=== PATIENT | female | born 1980 | race Caucasian/White ===

== ENCOUNTER 2016-11-25 21:32 | Outpatient (CLI) | payer MEDICAID | END 2016-11-25 21:33 | disposition critical access hospital (66) | LOC: EMS 21:32 | PROVIDERS: ATTEND Surgery | DX: R46.89 Other symptoms and signs involving appearance and behavior (principal); R45.1 Restlessness and agitation | CPT/HCPCS: A0425; A0429 ==

== ENCOUNTER 2016-11-25 21:40 | Emergency (ER) | payer MEDICAID ==
--- NOTE | 2016-11-25 22:35 | ED Physician Documentation ---
History of Present Illness - Stated complaint Stated Complaint: ETOH - Chief complaint Chief Complaint: General - History obtained from History obtained from: Patient, EMS, Police - Additonal information Additional information: GUILLERMINA, reportedly her s.o. called 911 because patient was passed out on floor of her house. Medics found patient on floor, unconscious and not responsive to painful stimuli. Patient became increasingly responsive en route to ED and arrives awake, agitated, crying, and uncooperative. She admits to drinking some alcohol tonight. TOM by police in field was .286. 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 HEENT: Tonsil/Adenoidectomy - Present Medications Home Medications: Ambulatory Orders Medication Instructions Recorded Confirmed oxyCODONE [Roxicodone] 5 mg 03/04/16 - Allergies Allergies/Adverse Reactions: Allergies Allergy/AdvReac Type Severity Reaction Status Date / Time Penicillins Allergy Severe Respiratory Verified 05/25/16 13:20 codeine [Codeine] Allergy Intermediate Itching Verified 05/25/16 13:20 gabapentin Allergy Intermediate Hallucinati Verified 05/25/16 13:20 ons morphine Allergy Respiratory Verified 05/25/16 13:20 - Social History Does the pt smoke?: No Smoking Status: Never smoker Does the pt drink ETOH?: No Does the pt have substance abuse?: No - Immunizations Immunizations are current?: Yes - POLST Patient has POLST: No PD ED PE NORMAL - Vitals Vital signs reviewed: Yes - General General: Alert and oriented X 3, Well developed/nourished, Other (labile affect ; crying at times, but also conversant and smiling at times. ) - HEENT HEENT: PERRL, EOMI - Neck Neck: No bony TTP - Cardiac Cardiac: RRR, No murmur - Respiratory Respiratory: No respiratory distress, Clear bilaterally - Extremities Extremities: No deformity, Normal ROM s pain - Neuro Neuro: Alert and oriented X 3 Results - Vitals Vitals: Vital Signs - 24 hr 11/25/16 11/25/16 21:44 22:53 Temperature 36.3 C L Heart Rate 102 H 126 H Respiratory 18 24 Rate Blood Pressure 140/90 H 122/89 H O2 Saturation 98 98 Oxygen O2 Source Room air PD MEDICAL DECISION MAKING - ED course Complexity details: considered differential, d/w patient ED course: Patient appears intoxicated and is uncooperative at times. However, she is awake and alert, and she answers appropriately. She denies [place]. She repeatedly requests discharge home. Police are present in ED. There is no evidence of injury on exam. I advised her to not drink any alcohol if she is taking oxycodone/percocet (or any narcotic/opiate). She says she has been on percocet for several years and does not feel this is a dangerous combination. I was clear in instructing her that combining alcohol with narcotic/opiate medications is extremely dangerous and that she needs to immediately stop drinking if she is to continue on oxycodone. This was written into her discharge instructions as well. Departure - Departure Disposition: 01 Home, Self Care Clinical Impression: Alcohol intoxication Qualifiers: Complication of substance-induced condition: uncomplicated Qualified Code(s): F10.120 - Alcohol abuse with intoxication, uncomplicated Condition: Good Instructions: ED Alcohol Intoxication Comments: As we discussed, DO NOT DRINK ANY ALCOHOL IF YOU ARE TAKING OXYCODONE (or any narcotic/opiate). This is a potentially deadly combination. If you are taking oxycodone with acetaminophen (such as Percocet), you are also likely to permanently damage your liver by combining alcohol and acetaminophen. Discharge Date/Time: 11/25/16 22:56
[2016-11-25 22:56] VITALS: BP 122/89
== END 2016-11-25 22:56 | disposition home or self-care (01) ==
LOC: ED 21:40
DX: F10.129 Alcohol abuse with intoxication, unspecified (principal)
CPT/HCPCS: 99283

== ENCOUNTER 2016-12-24 23:02 | Emergency (ER) | payer MEDICAID ==
[2016-12-24 23:13] VITALS: BP 143/98
--- NOTE | 2016-12-25 00:43 | ED Physician Documentation ---
History of Present Illness - Stated complaint Stated Complaint: SINUS PRESSURE - Chief complaint Chief Complaint: General - History obtained from History obtained from: Patient - History of Present Illness Timing: How many weeks ago (2) Pain level now: 8 Improved by: nothing Worsened by: leaning forward - Additonal information Additional information: c/o bifrontal and bimaxillary sinus pain and congestion x 2 days with thick, green dischagre. subjective fever. cough, cold Review of Systems Constitutional: reports: Chills, Sweats. 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 HEENT: Tonsil/Adenoidectomy - Present Medications Home Medications: Ambulatory Orders Medication Instructions Recorded Confirmed oxyCODONE [Roxicodone] 5 mg PO 1-2XD PRN 03/04/16 12/24/16 Ipratropium/Albuterol [Combivent 1 - 2 puffs PO Q6HR PRN 12/24/16 12/24/16 Respimat] Doxycycline Hyclate 100 mg PO BID #14 tablet 12/25/16 predniSONE [Deltasone] 40 mg PO DAILY 3 Days 12/25/16 - Allergies Allergies/Adverse Reactions: Allergies Allergy/AdvReac Type Severity Reaction Status Date / Time Penicillins Allergy Severe Respiratory Verified 12/24/16 23:23 codeine [Codeine] Allergy Intermediate Itching Verified 12/24/16 23:23 gabapentin Allergy Intermediate Hallucinati Verified 12/24/16 23:23 ons morphine Allergy Respiratory Verified 12/24/16 23:23 - Social History Does the pt smoke?: Yes Smoking Status: Light tobacco smoker Does the pt drink ETOH?: Yes Does the pt have substance abuse?: No - Immunizations Immunizations are current?: Yes - POLST Patient has POLST: No PD ED PE NORMAL - Vitals Vital signs reviewed: Yes - General General: Alert and oriented X 3, No acute distress, Well developed/nourished - HEENT HEENT: Atraumatic, PERRL, EOMI, Moist mucous membranes, Pharynx benign - Neck Neck: Supple, no meningeal sign - Cardiac Cardiac: RRR, No murmur, No gallop, No rub - Respiratory Respiratory: No respiratory distress, Clear bilaterally - Abdomen Abdomen: Soft, Non tender - Derm Derm: No rash Results - Vitals Vitals: Oxygen O2 Source Room air PD MEDICAL DECISION MAKING - ED course Complexity details: reviewed results, re-evaluated patient, considered differential, d/w patient, d/w family Departure - Departure Disposition: 01 Home, Self Care Clinical Impression: Sinusitis Condition: Good Instructions: ED Sinusitis Abx Tx Follow-Up: Kathleen Maravilla MD [Primary Care Provider] - Within 1 week Prescriptions: predniSONE [Deltasone] 40 mg PO DAILY 3 Days Doxycycline Hyclate 100 mg PO BID #14 tablet Discharge Date/Time: 12/25/16 01:12
[2016-12-25] MEDS ORDERED: DOXYCYCLINE 100 MG TABLET PO STA (01:00)
[2016-12-25] MEDS ORDERED: DEXAMETHASONE 10 MG/ML VIAL PO STA (01:00)
[2016-12-25] MEDS ORDERED: CHERRY SYRUP 10 ML UDC PO ONE (01:07)
[2016-12-25] MEDS ORDERED: DOXYCYCLINE 100 MG TABLET PO ONE (01:07)
[2016-12-25] MEDS ORDERED: DEXAMETHASONE 10 MG/ML VIAL ONE (01:07)
== END 2016-12-25 01:12 | disposition home or self-care (01) ==
LOC: ED 23:02
DX: J32.1 Chronic frontal sinusitis (principal); J32.0 Chronic maxillary sinusitis
CPT/HCPCS: 99283; A9270

== ENCOUNTER 2017-01-26 19:28 | Outpatient (CLI) | payer MEDICAID | END 2017-01-26 19:29 | disposition critical access hospital (66) | LOC: EMS 19:28 | PROVIDERS: ATTEND Surgery | DX: R53.1 Weakness (principal); Z72.89 Other problems related to lifestyle | CPT/HCPCS: A0425; A0429 ==

== ENCOUNTER 2017-01-26 19:46 | Emergency (ER) | payer MEDICAID ==
--- NOTE | 2017-01-27 01:31 | ED Physician Documentation ---
PD HPI OVERDOSE - Stated complaint Stated Complaint: HBD - Chief complaint Chief Complaint: General - History obtained from History obtained from: Patient, EMS - History of Present Illness Timing - onset: Today Subtance(s) ingested: EtOH Contributing factors: Accidental Similar symptoms before: Has not had sx before Recently seen: Not recently seen - Additional information Additional information: Patient is a 36 year old female brought in by ems for altered mental status. according to ems patient admitted to drinking all day today and ended up passing out. Upon my initial evaluation patient was barely arousable but was maintaining her airway. 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 HEENT: Tonsil/Adenoidectomy - Present Medications Home Medications: Ambulatory Orders Medication Instructions Recorded Confirmed oxyCODONE [Roxicodone] 5 mg PO 1-2XD PRN 03/04/16 01/26/17 Ipratropium/Albuterol [Combivent 1 - 2 puffs PO Q6HR PRN 12/24/16 01/26/17 Respimat] - Allergies Allergies/Adverse Reactions: Allergies Allergy/AdvReac Type Severity Reaction Status Date / Time Penicillins Allergy Severe Respiratory Verified 01/26/17 19:55 codeine [Codeine] Allergy Intermediate Itching Verified 01/26/17 19:55 gabapentin Allergy Intermediate Hallucinati Verified 01/26/17 19:55 ons morphine Allergy Respiratory Verified 01/26/17 19:55 - Social History Does the pt smoke?: Yes Smoking Status: Light tobacco smoker Does the pt drink ETOH?: Yes Does the pt have substance abuse?: No - Immunizations Immunizations are current?: Yes - POLST Patient has POLST: No PD ED PE NORMAL - Vitals Vital signs reviewed: Yes - HEENT HEENT: Atraumatic, PERRL - Cardiac Cardiac: RRR, No murmur - Respiratory Respiratory: No respiratory distress, Clear bilaterally - Abdomen Abdomen: Soft - Back Back: No spinal TTP - Derm Derm: Normal color, Warm and dry, No rash, Other (no ecchymosis) - Extremities Extremities: No deformity - Neuro Neuro: No motor deficit PD ED PE EXPANDED - General General: Other (minimally responsive) - Neuro Neuro: Unresponsive (minimally responsive), Other (moving all extremities) - Psych Psych: Intoxicated / AOB Results - Vitals Vitals: Vital Signs - 24 hr 01/26/17 01/26/17 01/27/17 19:52 22:07 01:32 Temperature 36.6 C Heart Rate 88 90 83 Respiratory 18 16 16 Rate Blood Pressure 106/65 109/64 111/73 O2 Saturation 98 100 98 Oxygen O2 Source Room air - Labs Labs: Laboratory Tests 01/26/17 21:32 Ethyl Alcohol 329.9 PD MEDICAL DECISION MAKING - ED course Complexity details: reviewed old records, reviewed results, re-evaluated patient , considered differential, d/w patient ED course: Patient was seen and examined at bedside. Patient's vital signs were within normal limits. Patient was maintaining her airway but was minimally responsive. Patient's etoh was well over 300. Patient was given time to metabolize the etoh. Patient eventually woke up. Upon discharge patient was able attend to conversation and ambulate without difficulty. Patient required no further work up and was stable for discharge with outpatient follow up. Departure - Departure Disposition: 01 Home, Self Care Clinical Impression: Alcohol intoxication Condition: Good Instructions: ED Alcohol Intoxication Follow-Up: primary,care provider [Other] - As Needed Comments: Your symptoms today were secondary to alcohol intoxication. You should try to refrain from drinking so excessively. You may return to the emergency department at any time for new, worsening or uncontrollable symptoms. Discharge Date/Time: 01/27/17 01:40
[2017-01-27 01:32] VITALS: BP 111/73
== END 2017-01-27 01:40 | disposition home or self-care (01) ==
LOC: EDUNIT# → ED 19:46
DX: F10.120 Alcohol abuse with intoxication, uncomplicated (principal); Y90.8 Blood alcohol level of 240 mg/100 ml or more; F17.200 Nicotine dependence, unspecified, uncomplicated
CPT/HCPCS: 36415; 80320; 99283

== ENCOUNTER 2017-08-11 04:02 | Emergency (ER) | payer MEDICAID ==
[2017-08-11 04:16] VITALS: BP 136/77
[2017-08-11] MEDS ORDERED: IBUPROFEN 600 MG TABLET PO STA (04:18)
[2017-08-11] MEDS ORDERED: PHENAZOPYRIDINE 100 MG TABLET PO STA (04:18)
[2017-08-11] MEDS ORDERED: SULFAMETH/TRIMETH DS 800/160 MG TABLET PO STA (04:18)
[2017-08-11 04:21] LABS: BILIRUBIN,URINE NEGATIVE (NEGATIVE); GLUCOSE, URINE (UA) NEGATIVE (NEGATIVE); KETONES,URINE (UA) TRACE mg/dL (NEGATIVE); LEUKOCYTE ESTERASE, URINE MODERATE (NEGATIVE); NITRITE,URINE NEGATIVE (NEGATIVE); OCCULT BLOOD,URINE LARGE (NEGATIVE); PH,URINE 7.5 PH (5.0-7.5); PROTEIN,URINE 100 mg/dL (NEGATIVE); UROBILINOGEN,URINE 0.2 (NORMAL) E.U./dL (NORMAL)
--- NOTE | 2017-08-11 04:25 | ED Physician Documentation ---
PD HPI FEMALE - Stated complaint Stated Complaint: BLOOD IN URINE - Chief complaint Chief Complaint: Abd Pain - History obtained from History obtained from: Patient - History of Present Illness Timing - onset: Yesterday Timing - details: Gradual onset, Still present Associated symptoms: Pelvic pain, Dysuria, Urinary frequency, Hematuria Similar symptoms before: Work up / diagnostics Recently seen: Not recently seen - Additional information Additional information: Patient is a 37 year old female with no significant past medical history who is presenting to the emergency department for dysuria, increased frequency and hematuria. patient states that her symptoms started yesterday and have become progressively worse. Review of Systems Constitutional: denies: Fever, Chills Eyes: reports: Reviewed and negative Ears: reports: Reviewed and negative Nose: reports: Reviewed and negative Throat: reports: Reviewed and negative Respiratory: reports: Reviewed and negative GI: denies: Nausea, Vomiting : reports: Dysuria, Frequency, Hematuria Musculoskeletal: denies: Back pain Immunocompromised: denies: Immunocompromised PD PAST MEDICAL HISTORY - Past Medical History Past Medical History: Yes Cardiovascular: None Respiratory: None Neuro: None Endocrine/Autoimmune: None Musculoskeletal: None Other Past Medical History: UTI - Past Surgical History Past Surgical History: Yes General: Cholecystectomy 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 HEENT: Tonsil/Adenoidectomy - Present Medications Home Medications: Ambulatory Orders Medication Instructions Recorded Confirmed oxyCODONE [Roxicodone] 5 mg PO 1-2XD PRN 03/04/16 01/26/17 Ipratropium/Albuterol [Combivent 1 - 2 puffs PO Q6HR PRN 12/24/16 01/26/17 Respimat] Phenazopyridine HCl [Pyridium] 200 mg PO TID PRN #6 tablet 08/11/17 Sulfamethox/Trimeth 800/160 1 each PO BID #14 tablet 08/11/17 [Bactrim Ds 800/160] - Allergies Allergies/Adverse Reactions: Allergies Allergy/AdvReac Type Severity Reaction Status Date / Time Penicillins Allergy Severe Respiratory Verified 08/11/17 04:19 codeine [Codeine] Allergy Intermediate Itching Verified 08/11/17 04:19 gabapentin Allergy Intermediate Hallucinati Verified 08/11/17 04:19 ons amoxicillin Allergy Respiratory Verified 08/11/17 04:19 morphine Allergy Respiratory Verified 08/11/17 04:19 - Social History Does the pt smoke?: Yes Smoking Status: Current every day smoker Does the pt drink ETOH?: Yes Does the pt have substance abuse?: No - Immunizations Immunizations are current?: Yes - POLST Patient has POLST: No PD ED PE NORMAL - Vitals Vital signs reviewed: Yes - General General: Alert and oriented X 3, No acute distress - HEENT HEENT: Atraumatic, Moist mucous membranes - Cardiac Cardiac: RRR - Respiratory Respiratory: No respiratory distress - Abdomen Abdomen: Non distended - Back Back: No CVA TTP - Derm Derm: Normal color, No rash - Extremities Extremities: No deformity - Neuro Neuro: Alert and oriented X 3, Normal speech Results - Vitals Vitals: Vital Signs - 24 hr 08/11/ 04:05 Temperature 37.0 C Heart Rate 80 Respiratory 16 Rate Blood Pressure 136/77 H O2 Saturation 97 Oxygen O2 Source Room air PD MEDICAL DECISION MAKING - ED course Complexity details: reviewed old records, reviewed results, re-evaluated patient , considered differential, d/w patient ED course: Patient was seen and examined at bedside. urine was collected. patient was treated with bactrim, motrin and pyridium. Patient was non toxic and able to tolerate PO without difficulty. Patient required no further work up and was stable for discharge with outpatient follow up. Departure - Departure Disposition: 01 Home, Self Care Clinical Impression: Urinary tract infection Condition: Good Instructions: ED UTI Cystitis Female Follow-Up: Kathleen Maravilla MD [Primary Care Provider] - Within 3 Days Prescriptions: Phenazopyridine HCl [Pyridium] 200 mg PO TID PRN #6 tablet PRN Reason: dysuria Sulfamethox/Trimeth 800/160 [Bactrim Ds 800/160] 1 each PO BID #14 tablet Comments: Your symptoms today are being started by a urinary tract infection. You should take your full course of antibiotics. You should take the pyridium and motrin and tylenol for pain. You should stay well hydrated and drink lots of water. You should follow up with your docotr if your sympotms don't improve. You may return to the emergency department at any time for new, worsening or uncontrollable symptoms.
[2017-08-11 04:36] LABS: CLARITY,URINE CLOUDY (CLEAR); HCG UR QUAL NEGATIVE
[2017-08-11 04:40] LABS: RBC,URINE TNTC /HPF (0-5); SQUAMOUS EPITHELIAL CELL,UR NONE SEEN (<= Few)
[2017-08-11 04:41] LABS: BACTERIA,URINE None Seen /HPF (None Seen)
== END 2017-08-11 04:30 | disposition home or self-care (01) ==
LOC: ED 04:02
DX: N39.0 Urinary tract infection, site not specified (principal); F17.200 Nicotine dependence, unspecified, uncomplicated
CPT/HCPCS: 81001; 81025; 87086; 87181; 99283; A9270; 81003

== ENCOUNTER 2017-10-07 21:43 | Emergency (ER) | payer MEDICAID ==
[2017-10-07 22:24] VITALS: BP 125/108
--- NOTE | 2017-10-07 22:47 | ED Physician Documentation ---
PD HPI FEMALE - Stated complaint Stated Complaint: FEMALE - Chief complaint Chief Complaint: Abd Pain - History obtained from History obtained from: Patient - History of Present Illness Timing - onset: Today Timing - duration: Days (1) Timing - details: Abrupt onset, Still present Associated symptoms: Dysuria, Urinary frequency. No: Fever, Abdominal pain Similar symptoms before: Diagnosis (UTI) Recently seen: Not recently seen Review of Systems Constitutional: denies: Fever, Chills GI: reports: Nausea. 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 HEENT: Tonsil/Adenoidectomy - Present Medications Home Medications: Ambulatory Orders Medication Instructions Recorded Confirmed oxyCODONE [Roxicodone] 5 mg PO 1-2XD PRN 03/04/16 01/26/17 Ipratropium/Albuterol [Combivent 1 - 2 puffs PO Q6HR PRN 12/24/16 01/26/17 Respimat] Phenazopyridine HCl [Pyridium] 200 mg PO TID PRN #6 tablet 08/11/17 Sulfamethox/Trimeth 800/160 1 each PO BID #14 tablet 08/11/17 [Bactrim Ds 800/160] Phenazopyridine [Pyridium] 100 mg PO TID PRN #15 tablet 10/07/17 Sulfamethox/Trimeth 800/160 1 each PO BID #14 tablet 10/07/17 [Bactrim Ds 800/160] - Allergies Allergies/Adverse Reactions: Allergies Allergy/AdvReac Type Severity Reaction Status Date / Time Penicillins Allergy Severe Respiratory Verified 10/07/17 22:24 codeine [Codeine] Allergy Intermediate Itching Verified 10/07/17 22:24 gabapentin Allergy Intermediate Hallucinati Verified 10/07/17 22:24 ons amoxicillin Allergy Respiratory Verified 10/07/17 22:24 morphine Allergy Respiratory Verified 10/07/17 22:24 - Social History Does the pt smoke?: Yes Smoking Status: Current every day smoker Does the pt drink ETOH?: Yes Does the pt have substance abuse?: No - Immunizations Immunizations are current?: Yes - POLST Patient has POLST: No PD ED PE NORMAL - Vitals Vital signs reviewed: Yes - General General: Alert and oriented X 3, No acute distress, Well developed/nourished - HEENT HEENT: Atraumatic, Ears normal - Neck Neck: Supple, no meningeal sign, No adenopathy - Cardiac Cardiac: RRR, No murmur - Respiratory Respiratory: Clear bilaterally - Back Back: No CVA TTP - Derm Derm: Normal color, Warm and dry, No rash Results - Vitals Vitals: Oxygen O2 Source Room air - Labs Labs: Microbiology 10/07/17 22:35 Urine Culture - Final Urine,Clean Catch 10-50,000 COLONIES/ML Polymicrobial growth including potential pathogens. This is suggestive of skin or other contamination. Laboratory Tests 10/07/17 22:35 Urine Color RED/BLOODY Urine Clarity BLOODY Urine pH 6.0 Ur Specific [place] >=1.030 H Urine Protein >=300 H Urine Glucose (UA) NEGATIVE Urine Ketones TRACE Urine Occult Blood LARGE H Urine Nitrite NEGATIVE Urine Bilirubin NEGATIVE Urine Urobilinogen 0.2 (NORMAL) Ur Leukocyte Esterase TRACE H Urine RBC TNTC H Urine WBC 4-5 Ur Squamous Epith Cells NONE SEEN Urine Bacteria None Seen Ur Microscopic Review INDICATED Urine Culture Comments INDICATED Urine HCG, Qual Cancelled PD MEDICAL DECISION MAKING - ED course Complexity details: considered differential (UA is not terrible but her symptoms are very suggestive of UTI. ), d/w patient Departure - Departure Disposition: 01 Home, Self Care Clinical Impression: Dysuria UTI (urinary tract infection) Qualifiers: Urinary tract infection type: acute cystitis Hematuria presence: with hematuria Qualified Code(s): N30.01 - Acute cystitis with hematuria Condition: Stable Record reviewed to determine appropriate education?: Yes Instructions: ED UTI Cystitis Female Follow-Up: Kathleen Maravilla MD [Primary Care Provider] - Prescriptions: Phenazopyridine [Pyridium] 100 mg PO TID PRN #15 tablet PRN Reason: Pain Sulfamethox/Trimeth 800/160 [Bactrim Ds 800/160] 1 each PO BID #14 tablet Comments: Drink lots of fluids. Tylenol or ibuprofen/naproxen if needed for pains. Phenazopyridine will help with discomfort of urination (it may turn her urine a bit orange so not to worry). Bactrim twice a day for a week for the infection. Recheck if not improving however in the next 2-3 days as it should improve in that timeframe. Discharge Date/Time: 10/07/17 23:22
[2017-10-07] MEDS ORDERED: PHENAZOPYRIDINE 100 MG TABLETS (Prepack) PO PRN (23:07)
[2017-10-07] MEDS: IBUPROFEN 600 MG TABLET PO STA (23:12)
[2017-10-07] MEDS: SULFAMETH/TRIMETH DS 800/160 MG TABLET PO STA (23:12)
[2017-10-07] MEDS: PHENAZOPYRIDINE 100 MG TABLET PO STA (23:12)
[2017-10-07 23:22] LABS: BILIRUBIN,URINE NEGATIVE (NEGATIVE); GLUCOSE, URINE (UA) NEGATIVE (NEGATIVE); KETONES,URINE (UA) TRACE mg/dL (NEGATIVE); LEUKOCYTE ESTERASE, URINE TRACE (NEGATIVE); NITRITE,URINE NEGATIVE (NEGATIVE); OCCULT BLOOD,URINE LARGE (NEGATIVE); PROTEIN,URINE >=300 mg/dL (NEGATIVE); UROBILINOGEN,URINE 0.2 (NORMAL) E.U./dL (NORMAL)
[2017-10-07 23:40] LABS: CLARITY,URINE BLOODY (CLEAR)
[2017-10-07 23:41] LABS: BACTERIA,URINE None Seen /HPF (None Seen); RBC,URINE TNTC /HPF (0-5); SQUAMOUS EPITHELIAL CELL,UR NONE SEEN (<= Few)
== END 2017-10-07 23:22 | disposition home or self-care (01) ==
LOC: ED 21:43
DX: N30.01 Acute cystitis with hematuria (principal); Z87.440 Personal history of urinary (tract) infections; F17.200 Nicotine dependence, unspecified, uncomplicated
CPT/HCPCS: 81001; 81003; 81025; 87086; 99283

== ENCOUNTER 2018-04-15 20:23 | Emergency (ER) | payer MEDICAID ==
[2018-04-15 20:41] LABS: BILIRUBIN,URINE NEGATIVE (NEGATIVE); GLUCOSE, URINE (UA) NEGATIVE (NEGATIVE); KETONES,URINE (UA) NEGATIVE (NEGATIVE); LEUKOCYTE ESTERASE, URINE MODERATE (NEGATIVE); NITRITE,URINE POSITIVE (NEGATIVE); OCCULT BLOOD,URINE MODERATE (NEGATIVE); PROTEIN,URINE NEGATIVE (NEGATIVE); UROBILINOGEN,URINE 0.2 (NORMAL) E.U./dL (NORMAL)
[2018-04-15 20:42] VITALS: BP 145/110
[2018-04-15 20:42] LABS: CLARITY,URINE HAZY (CLEAR)
[2018-04-15 20:43] LABS: HCG UR QUAL NEGATIVE
[2018-04-15 20:51] LABS: SQUAMOUS EPITHELIAL CELL,UR NONE SEEN (<= Few); WBC CLUMPS,URINE PRESENT
[2018-04-15 20:52] LABS: BACTERIA,URINE Moderate /HPF (None Seen)
[2018-04-15] MEDS ORDERED: SULFAM/TRIM 800/160 Prepack 2 PO ONE (20:55)
--- NOTE | 2018-04-15 20:58 | ED Physician Documentation ---
PD HPI FEMALE - Stated complaint Stated Complaint: FEMALE - Chief complaint Chief Complaint: UTI - History obtained from History obtained from: Patient, Family - History of Present Illness Timing - onset: How many days ago (3) Timing - duration: Days (3) Timing - details: Gradual onset, Still present Associated symptoms: Dysuria, Urinary frequency Contributing factors: No: Similar symptoms before: Diagnosis (UTI) Recently seen: Not recently seen - Additional information Additional information: 38-year-old female with a history of recent urinary tract infections x2 in the past 2 years has developed symptoms again over the past several days. She is developed urinary urgency frequency and dysuria and has a lot of bladder cramping. She states that she responded well to treatment both times previously and review of her record shows that she was treated both times with Septra the initial culture showed an E. coli sensitive to Septra. Her last visit here the urinalysis was not entirely convincing the culture grew out sub threshold poly- organisms and the patient responded well to treatment. Review of Systems Constitutional: reports: Fatigue. denies: Fever, Chills, Myalgias Eyes: denies: Decreased vision Ears: denies: Ear pain Nose: denies: Congestion Respiratory: denies: Cough GI: reports: Abdominal Pain. 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 HEENT: Tonsil/Adenoidectomy - Present Medications Home Medications: Ambulatory Orders Medication Instructions Recorded Confirmed Sulfamethoxazole/Trimethoprim 1 each PO BID #10 tablet 04/15/18 [Sulfamethoxazole-Tmp Ds Tablet] - Allergies Allergies/Adverse Reactions: Allergies Allergy/AdvReac Type Severity Reaction Status Date / Time Penicillins Allergy Severe Respiratory Verified 04/15/18 20:43 codeine [Codeine] Allergy Intermediate Itching Verified 04/15/18 20:43 gabapentin Allergy Intermediate Hallucinati Verified 04/15/18 20:43 ons amoxicillin Allergy Respiratory Verified 04/15/18 20:43 morphine Allergy Respiratory Verified 04/15/18 20:43 - Social History Does the pt smoke?: Yes Smoking Status: Current every day smoker Does the pt drink ETOH?: Yes Does the pt have substance abuse?: No - Immunizations Immunizations are current?: Yes - POLST Patient has POLST: No PD ED PE NORMAL - Vitals Vital signs reviewed: Yes (tachy and hypertensive ) - General General: Alert and oriented X 3, No acute distress, Well developed/nourished - HEENT HEENT: Atraumatic, PERRL, EOMI - Neck Neck: Supple, no meningeal sign, No bony TTP - Cardiac Cardiac: RRR, No murmur - Respiratory Respiratory: No respiratory distress, Clear bilaterally - Abdomen Abdomen: Soft, Non tender - Back Back: No CVA TTP, No spinal TTP - Derm Derm: Normal color, Warm and dry, No rash - Extremities Extremities: No deformity, No edema - Neuro Neuro: Alert and oriented X 3, heel cover splitter 2-12 intact, No motor deficit, No sensory deficit, Normal speech Eye Opening: Spontaneous Motor: Obeys Commands Verbal: Oriented GCS Score: 15 - Psych Psych: Normal mood, Normal affect Results - Vitals Vitals: Vital Signs - 24 hr 04/15/18 20:36 Temperature 36.6 C Heart Rate 103 H Respiratory 16 Rate Blood Pressure 145/110 H O2 Saturation 100 Oxygen O2 Source Room air - Labs Labs: Laboratory Tests 04/15/18 20:29 Urine Color YELLOW Urine Clarity HAZY Urine pH 7.0 Ur Specific [place] 1.010 Urine Protein NEGATIVE Urine Glucose (UA) NEGATIVE Urine Ketones NEGATIVE Urine Occult Blood MODERATE H Urine Nitrite POSITIVE H Urine Bilirubin NEGATIVE Urine Urobilinogen 0.2 (NORMAL) Ur Leukocyte Esterase MODERATE H Urine RBC 11-25 H Urine WBC >25 H Urine WBC Clumps PRESENT Ur Squamous Epith Cells NONE SEEN Urine Bacteria Moderate H Ur Microscopic Review INDICATED Urine Culture Comments INDICATED Urine HCG, Qual NEGATIVE PD MEDICAL DECISION MAKING - ED course Complexity details: reviewed old records, reviewed results, re-evaluated patient, considered differential, d/w patient, d/w family ED course: 38-year-old female with urinary symptoms has evidence of infection on microscopic examination of the urine and she is administered sulfamethoxazole trimethoprim. Departure - Departure Disposition: 01 Home, Self Care Clinical Impression: UTI (urinary tract infection) Qualifiers: Urinary tract infection type: acute cystitis Hematuria presence: with hematuria Qualified Code(s): N30.01 - Acute cystitis with hematuria Condition: Stable Instructions: ED UTI Cystitis Female Follow-Up: Kathleen Maravilla MD [Primary Care Provider] - Prescriptions: Sulfamethoxazole/Trimethoprim [Sulfamethoxazole-Tmp Ds Tablet] 1 each PO BID #10 tablet
== END 2018-04-15 21:07 | disposition home or self-care (01) ==
LOC: ED 20:23
DX: N30.01 Acute cystitis with hematuria (principal); F17.200 Nicotine dependence, unspecified, uncomplicated
CPT/HCPCS: 81001; 81003; 81025; 87077; 87086; 87181; 99283

== ENCOUNTER 2018-05-19 17:22 | Emergency (ER) | payer MEDICAID ==
[2018-05-19] MEDS ORDERED: LORazepam 0.5 MG TABLET PO STA (18:03)
[2018-05-19 18:14] LABS: MUDS CUTOFF CONCENTRATIONS CUTOFF CONC BELOW:
[2018-05-19 18:16] LABS: GLUCOSE, URINE (UA) NEGATIVE (NEGATIVE); KETONES,URINE (UA) TRACE mg/dL (NEGATIVE); LEUKOCYTE ESTERASE, URINE NEGATIVE (NEGATIVE); NITRITE,URINE NEGATIVE (NEGATIVE); OCCULT BLOOD,URINE TRACE-INTA (NEGATIVE); PROTEIN,URINE NEGATIVE (NEGATIVE); UROBILINOGEN,URINE 0.2 (NORMAL) E.U./dL (NORMAL)
[2018-05-19 18:23] LABS: BILIRUBIN,URINE NEGATIVE (NEGATIVE); CLARITY,URINE CLEAR (CLEAR); HCG UR QUAL NEGATIVE; ICTOTEST,URINE NEGATIVE
[2018-05-19 18:29] LABS: BASOPHILS % (AUTO) 0.5 %; EOSINOPHILS % (AUTO) 0.1 %; LYMPHOCYTES % (AUTO) 10.9 %; MEAN CORPUSCULAR HEMOGLOBIN 31.3 pg (27.0-31.0); MEAN CORPUSCULAR HGB CONC 32.6 g/dL (32.0-36.0); MEAN CORPUSCULAR VOLUME 95.9 fL (81.0-99.0); MEAN PLATELET VOLUME 8.2 fL (7.9-10.8); MONOCYTES # (AUTO) 0.6 10^3/uL (0.0-1.0); MONOCYTES % (AUTO) 6.6 %; NEUTROPHILS # (AUTO) 7.6 10^3/uL (1.5-6.6); NEUTROPHILS % (AUTO) 81.9 %; PLT - PLATELET COUNT 205 10^3/uL (130-450); RED BLOOD COUNT 4.78 10^6/uL (4.20-5.40); RED CELL DISTRIBUTION WIDTH 13.5 % (12.0-15.0); WHITE BLOOD COUNT 9.3 x10^3/uL (4.8-10.8)
[2018-05-19 18:29] LABS: AMPHETAMINE SCREEN,URINE POSITIVE (NEGATIVE); COCAINE SCREEN URINE NEGATIVE (NEGATIVE); METHAMPHETAMINES SCREEN, URINE POSITIVE (NEGATIVE); OPIATE SCREEN, URINE NEGATIVE (NEGATIVE)
[2018-05-19 18:30] LABS: BENZODIAZEPINES SCREEN, URINE NEGATIVE (NEGATIVE); METHADONE SCREEN, URINE NEGATIVE (NEGATIVE); OXYCODONE SCREEN, URINE NEGATIVE (NEGATIVE); PROPOXYPHENE SCREEN, URINE NEGATIVE (NEGATIVE); TRICYCLIC ANTIDEPRESSANT,URINE NEGATIVE (NEGATIVE)
--- NOTE | 2018-05-19 18:39 | ED Physician Documentation ---
PD HPI MHE - Stated complaint Stated Complaint: SI/CP/ANXIETY - Chief complaint Chief Complaint: MHE - History obtained from History obtained from: Patient - History of Present Illness Primary symptom: Suicidal ideation, Depression, Anxiety Timing - onset: How many days ago (4) Pain level max: 0 Pain level now: 0 Contributing factors: Family, Substance abuse - ETOH, Substance abuse - drugs Similar symptoms before: Has not had sx before Recently seen: Not recently seen - Additional information Additional information: 38-year-old female presents to the emergency department with anxiety and suicidal ideation today. States that her left her 4 days ago. 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 She states that she used heroin and methamphetamine that day but has not used since. Does not currently have a plan. She is afraid that she will hurt herself if she goes home tonight. She does not have any prior diagnosis of depression or anxiety. No prior suicide attempts. Has had addiction issues with heroin, methamphetamine and alcohol in the past. Review of Systems Ten Systems: 10 systems reviewed and negative Constitutional: denies: Fever, Chills Nose: denies: Rhinorrhea / runny nose, Congestion Respiratory: denies: Cough Skin: denies: Rash Musculoskeletal: denies: Neck pain, Back pain Neurologic: denies: Focal weakness, Numbness, Headache Psychiatric: reports: Depressed, Suicidal, Anxiety, Insomnia. 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, Tubal ligation HEENT: Tonsil/Adenoidectomy - Present Medications Home Medications: Ambulatory Orders Medication Instructions Recorded Confirmed Sulfamethoxazole/Trimethoprim 1 each PO BID #10 tablet 04/15/18 [Sulfamethoxazole-Tmp Ds Tablet] - Allergies Allergies/Adverse Reactions: Allergies Allergy/AdvReac Type Severity Reaction Status Date / Time Penicillins Allergy Severe Respiratory Verified 04/15/18 20:43 codeine [Codeine] Allergy Intermediate Itching Verified 04/15/18 20:43 gabapentin Allergy Intermediate Hallucinati Verified 04/15/18 20:43 ons amoxicillin Allergy Respiratory Verified 04/15/18 20:43 morphine Allergy Respiratory Verified 04/15/18 20:43 - Living Situation Living Arrangement: reports: At home - Social History Does the pt smoke?: Yes Smoking Status: Current every day smoker Does the pt drink ETOH?: Yes Does the pt have substance abuse?: Yes Substance Use and Type: Meth, Heroin - Family History Family history: reports: Non contributory - Immunizations Immunizations are current?: Yes - POLST Patient has POLST: No PD ED PE NORMAL - Vitals Vital signs reviewed: Yes - General General: Alert and oriented X 3, No acute distress - HEENT HEENT: Moist mucous membranes - Neck Neck: Supple, no meningeal sign - Cardiac Cardiac: RRR, Strong equal pulses - Respiratory Respiratory: No respiratory distress, Clear bilaterally - Abdomen Abdomen: Soft, Non tender, Non distended - Back Back: No spinal TTP - Derm Derm: Warm and dry - Extremities Extremities: No edema - Neuro Neuro: Alert and oriented X 3, associate professor of history 2-12 intact, No motor deficit, No sensory deficit, Normal speech - Psych Psych: Other (tearful, anxious.) Results - Vitals Vitals: Vital Signs - 24 hr 05/19/18 05/19/18 17:53 19:59 Temperature 36.4 C L 36.7 C Heart Rate 119 H 107 H Respiratory 26 H 20 Rate Blood Pressure 148/125 H 147/102 H O2 Saturation 97 100 Oxygen O2 Source Room air - Labs Labs: Laboratory Tests 05/19/18 05/19/18 05/19/18 18:05 18:05 18:20 WBC 9.3 RBC 4.78 Hgb 15.0 Hct 45.9 MCV 95.9 MCH 31.3 H MCHC 32.6 RDW 13.5 Plt Count 205 MPV 8.2 Neut # (Auto) 7.6 H Lymph # (Auto) 1.0 L [place] # (Auto) 0.6 Eos # (Auto) 0.0 Baso # (Auto) 0.0 Absolute Nucleated RBC 0.00 Nucleated RBC % 0.1 Sodium Potassium Chloride Carbon Dioxide Anion Gap BUN Creatinine Estimated GFR (MDRD) Glucose Calcium Total Bilirubin AST ALT Alkaline Phosphatase Total Protein Albumin Globulin Albumin/Globulin Ratio Lipase TSH Urine Color DARK YELLOW Urine Clarity CLEAR Urine pH 6.0 Ur Specific [place] >=1.030 H Urine Protein NEGATIVE Urine Glucose (UA) NEGATIVE Urine Ketones TRACE Urine Occult Blood TRACE-INTA Urine Nitrite NEGATIVE Urine Bilirubin NEGATIVE Urine Urobilinogen 0.2 (NORMAL) Ur Leukocyte Esterase NEGATIVE Ur Microscopic Review NOT INDICATED Urine Culture Comments NOT INDICATED Urine HCG, Qual NEGATIVE Salicylates Urine Opiates Screen NEGATIVE Ur Oxycodone Screen NEGATIVE Urine Methadone Screen NEGATIVE Ur Propoxyphene Screen NEGATIVE Acetaminophen Ur Barbiturates Screen NEGATIVE Ur Tricyclics Screen NEGATIVE Ur Phencyclidine Scrn NEGATIVE Ur Amphetamine Screen POSITIVE H U Methamphetamines Scrn POSITIVE H U Benzodiazepines Scrn NEGATIVE Urine Cocaine Screen NEGATIVE U Cannabinoids Screen NEGATIVE Ethyl Alcohol 05/19/18 05/19/18 18:20 18:20 WBC RBC Hgb Hct MCV MCH MCHC RDW Plt Count MPV Neut # (Auto) Lymph # (Auto) [place] # (Auto) Eos # (Auto) Baso # (Auto) Absolute Nucleated RBC Nucleated RBC % Sodium 138 Potassium 3.6 Chloride 102 Carbon Dioxide 28 Anion Gap 8.0 BUN 11 Creatinine 0.8 Estimated GFR (MDRD) 80 L Glucose 134 H Calcium 9.4 Total Bilirubin 0.7 AST 19 ALT 20 Alkaline Phosphatase 62 Total Protein 8.0 Albumin 4.4 Globulin 3.6 Albumin/Globulin Ratio 1.2 Lipase 46 TSH 3.32 Urine Color Urine Clarity Urine pH Ur Specific [place] Urine Protein Urine Glucose (UA) Urine Ketones Urine Occult Blood Urine Nitrite Urine Bilirubin Urine Urobilinogen Ur Leukocyte Esterase Ur Microscopic Review Urine Culture Comments Urine HCG, Qual Salicylates < 6.0 Urine Opiates Screen Ur Oxycodone Screen Urine Methadone Screen Ur Propoxyphene Screen Acetaminophen < 10 L Ur Barbiturates Screen Ur Tricyclics Screen Ur Phencyclidine Scrn Ur Amphetamine Screen U Methamphetamines Scrn U Benzodiazepines Scrn Urine Cocaine Screen U Cannabinoids Screen Ethyl Alcohol < 5.0 PD MEDICAL DECISION MAKING - ED course Complexity details: reviewed results, re-evaluated patient, considered differential, d/w patient ED course: 38-year-old female who presents to the emergency department with anxiety, suicidal ideation and depression. She is seeking voluntary hospitalization. Tele-psychiatry was consulted who recommends voluntary hospitalization. We will work on placement for her. Patient was signed out to the [facility] emergency department physician, Dr. Dockery. Please see his note for further evaluation and final disposition. Tammy is currently reviewing her records. She was given a dose of Ativan here which helped her anxiety significantly. Departure - Departure Disposition: 65 Psych Hosp/Unit DC/Xfer Clinical Impression: Suicidal ideation, Anxiety Depression Qualifiers: Depression Type: unspecified Qualified Code(s): F32.9 - Major depressive disorder, single episode, unspecified Condition: Stable
[2018-05-19 18:45] LABS: ACETAMINOPHEN < 10 ug/mL (10-30); ALBUMIN 4.4 g/dL (3.2-5.5); ALBUMIN/GLOBULIN RATIO 1.2 (1.0-2.2); ALKALINE PHOSPHATASE 62 IU/L (42-121); ALT ALANINE AMINOTRANSFERASE 20 IU/L (10-60); AST ASPARTATE AMINOTRANSFERASE 19 IU/L (10-42); BILIRUBIN,TOTAL 0.7 mg/dL (0.2-1.0); BUN - BLOOD UREA NITROGEN 11 mg/dL (6-20); CALCIUM 9.4 mg/dL (8.5-10.3); CARBON DIOXIDE - CO2 28 mmol/L (21-32); CHLORIDE 102 mmol/L (101-111); CREATININE 0.8 mg/dL (0.4-1.0); GFR - MDRD 80 (>89); GLUCOSE 134 mg/dL (70-100); LIPASE 46 U/L (22-51); SALICYLATE < 6.0 mg/dL; SODIUM 138 mmol/L (135-145)
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
[2018-05-19] MEDS ORDERED: NICOTINE 14 MG PATCH TOP STA (20:24)
[2018-05-19 21:40] VITALS: BP 112/84
== END 2018-05-20 04:51 ==
LOC: ED 17:22
DX: R45.851 Suicidal ideations (principal); F41.9 Anxiety disorder, unspecified; F32.9 Major depressive disorder, single episode, unspecified; F10.20 Alcohol dependence, uncomplicated; F15.20 Other stimulant dependence, uncomplicated; F11.20 Opioid dependence, uncomplicated; F17.200 Nicotine dependence, unspecified, uncomplicated
CPT/HCPCS: 36415; 80053; 80306; 80307; 80320; 80329; 81003; 81025; 83690; 84443; 85025; 93005; 99283; 99285; A9270; G0425; Q3014; 81001; 87086

== ENCOUNTER 2018-06-25 12:01 | Emergency (ER) | payer MEDICAID ==
[2018-06-25 14:06] LABS: BILIRUBIN,URINE NEGATIVE (NEGATIVE); GLUCOSE, URINE (UA) NEGATIVE (NEGATIVE); KETONES,URINE (UA) NEGATIVE (NEGATIVE); LEUKOCYTE ESTERASE, URINE NEGATIVE (NEGATIVE); NITRITE,URINE NEGATIVE (NEGATIVE); OCCULT BLOOD,URINE SMALL (NEGATIVE); PH,URINE 5.5 PH (5.0-7.5); PROTEIN,URINE NEGATIVE (NEGATIVE); UROBILINOGEN,URINE 0.2 (NORMAL) E.U./dL (NORMAL)
[2018-06-25 14:07] LABS: CLARITY,URINE CLEAR (CLEAR)
[2018-06-25 14:08] LABS: HCG UR QUAL NEGATIVE
[2018-06-25 14:16] LABS: BACTERIA,URINE Rare /HPF (None Seen); RBC,URINE 0-5 /HPF (0-5); SQUAMOUS EPITHELIAL CELL,UR FEW Squamous (<= Few)
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
[2018-06-25 16:39] VITALS: BP 137/78
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
== END 2018-06-25 16:39 | disposition home or self-care (01) ==
LOC: ED 12:01
DX: S92.902A Unspecified fracture of left foot, initial encounter for closed fracture (principal); Y09 Assault by unspecified means; Z20.2 Contact with and (suspected) exposure to infections with a predominantly sexual mode of transmission; F17.200 Nicotine dependence, unspecified, uncomplicated
CPT/HCPCS: 81001; 81003; 81025; 87086; 87491; 87591; 99282; 99283

== ENCOUNTER 2018-08-07 12:54 | Outpatient (CLI) | payer MEDICAID | END 2018-08-07 12:55 | disposition EMS.NT | LOC: EMS 12:54 | PROVIDERS: ATTEND Surgery | DX: R51 Headache (principal); Y04.2XXA Assault by strike against or bumped into by another person, initial encounter; Y92.039 Unspecified place in apartment as the place of occurrence of the external cause ==

== ENCOUNTER 2019-08-20 22:56 | Emergency (ER) | payer MEDICAID ==
[2019-08-20 23:04] VITALS: BP 140/86
--- NOTE | 2019-08-20 23:04 | ED Physician Documentation ---
History of Present Illness - Stated complaint Stated Complaint: BILAT KNEE PX - Chief complaint Chief Complaint: Ext Problem - History obtained from History obtained from: Patient - History of Present Illness Timing: Prior to arrival (approximately 21:00), Today Pain level now: 7 Improved by: rest Worsened by: movement, palpation - Additonal information Additional information: c/o rapid onset BLE pain and swelling, R>L, tonight while making pizza at approximately 9 PM. denies injury, denies h/o similar symptoms. Review of Systems Constitutional: denies: Fever, Chills, Sweats Cardiac: reports: Reviewed and negative Respiratory: reports: Reviewed and negative Skin: reports: Rash (RLE) Musculoskeletal: reports: Extremity pain, Extremity swelling, Pain with weight bearing PD PAST MEDICAL HISTORY - Past Medical History Cardiovascular: None Respiratory: None Neuro: None Endocrine/Autoimmune: None GI: None WIRE TWISTER: None : None HEENT: None Psych: None Musculoskeletal: None Derm: None - Past Surgical History Past Surgical History: Yes General: Cholecystectomy Ortho: Arthroscopic surgery /WIRE TWISTER: section, Tubal ligation HEENT: Tonsil/Adenoidectomy - Present Medications Home Medications: Ambulatory Orders Medication Instructions Recorded Confirmed Sulfamethoxazole/Trimethoprim 1 each PO BID #10 tablet 04/15/18 [Sulfamethoxazole-Tmp Ds Tablet] Sulfamethox/Trimeth 800/160 1 each PO BID #14 tablet 08/21/19 [Bactrim Ds 800/160] traMADol [Ultram] 50 - 100 mg PO Q6H PRN #14 tablet 08/21/19 - Allergies Allergies/Adverse Reactions: Allergies Allergy/AdvReac Type Severity Reaction Status Date / Time Penicillins Allergy Severe Respiratory Verified 08/20/19 23:00 codeine [Codeine] Allergy Intermediate Itching Verified 08/20/19 23:00 gabapentin Allergy Intermediate Hallucinati Verified 08/20/19 23:00 ons amoxicillin Allergy Respiratory Verified 08/20/19 23:00 morphine Allergy Respiratory Verified 08/20/19 23:00 - Social History Does the pt smoke?: Yes Smoking Status: Current every day smoker Does the pt drink ETOH?: Yes Does the pt have substance abuse?: Yes - Immunizations Immunizations are current?: Yes - POLST Patient has POLST: No PD ED PE NORMAL - Vitals Vital signs reviewed: Yes - General General: Alert and oriented X 3, No acute distress, Well developed/nourished - Respiratory Respiratory: No respiratory distress - Neuro Neuro: Alert and oriented X 3, No motor deficit, No sensory deficit PD ED PE EXPANDED - Extremities Extremities: Other (no swelling or erythema of LLE, but TTP distal foot, medial aspect. ) JOSE ARMANDO LE visual: 1 - rash (patchy erythema, flat, with confluence and hot to touch), swelling, tenderness Results - Vitals Vitals: Vital Signs - 24 hr 08/20/19 23:00 Temperature 36.5 C Heart Rate 122 H Respiratory 14 Rate Blood Pressure 140/86 H O2 Saturation 98 Oxygen O2 Source Room air - Rads (name of study) RLE venous doppler US Radiology: Prelim report reviewed, See rad report PD MEDICAL DECISION MAKING - ED course Complexity details: reviewed results, re-evaluated patient, considered differential, d/w patient Departure - Departure Disposition: 01 Home, Self Care Clinical Impression: Cellulitis Condition: Good Instructions: ED Infec Skin Cellulitis Follow-Up: Kathleen Maravilla MD [Primary Care Provider] - Prescriptions: Sulfamethox/Trimeth 800/160 [Bactrim Ds 800/160] 1 each PO BID #14 tablet traMADol [Ultram] 50 - 100 mg PO Q6H PRN #14 tablet PRN Reason: Pain Discharge Date/Time: 08/21/19 01:16
[2019-08-20] MEDS ORDERED: IBUPROFEN 600 MG TABLET PO STA (23:23)
[2019-08-21] MEDS ORDERED: traMADol 50 MG TABLET PO STA (01:03)
[2019-08-21] MEDS ORDERED: SULFAMETH/TRIMETH DS 800/160 MG TABLET PO STA (01:04)
--- NOTE | 2019-08-21 01:26 | Ultrasound Report ---
Reason: pain, swelling Procedure Date: 08/21/2019 Accession Number: [id number] / [id number] Procedure: US - Duplex Ext Veins Right CPT Code: Final Report FULL RESULT: EXAM: RIGHT LOWER EXTREMITY VENOUS ULTRASOUND EXAM DATE: 08/21/2019 12:36 AM. CLINICAL HISTORY: Pain, swelling. COMPARISON: None. TECHNIQUE: Real-time sonographic vascular imaging was performed by the text transcriber through the lower extremity utilizing both color-flow and Doppler spectral analysis. Multiple sales representative womens health static images were saved for review. FINDINGS: Common Femoral Vein (CFV): Normal. CFV-GSV Junction: Normal. Profunda Femoral Vein (PFV): Normal. Femoral Vein (FV) Prox: Normal. Femoral Vein (FV) Mid: Normal. Femoral Vein (FV) Dist: Normal. Popliteal Vein: Normal. Posterior Tibial Veins: Normal. Peroneal Veins: Normal. Other: Cystic structure at the posterior knee likely reflects a popliteal cyst. IMPRESSION: No evidence for deep venous thrombosis. RADIA
== END 2019-08-21 01:16 | disposition home or self-care (01) ==
LOC: ED 22:56
DX: L03.115 Cellulitis of right lower limb (principal); F17.200 Nicotine dependence, unspecified, uncomplicated
CPT/HCPCS: 93971; 99283; A9270

== ENCOUNTER 2019-09-27 16:56 | Outpatient (CLI) | payer MEDICAID | END 2019-09-27 16:57 | disposition critical access hospital (66) | LOC: EMS 16:56 | PROVIDERS: ATTEND Surgery | DX: R51 Headache (principal); Y04.2XXA Assault by strike against or bumped into by another person, initial encounter | CPT/HCPCS: A0425; A0429; A0999 ==

== ENCOUNTER 2019-09-27 17:15 | Emergency (ER) | payer MEDICAID ==
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
[2019-09-27 17:30] VITALS: BP 141/96
== END 2019-09-27 17:40 | disposition left against medical advice (07) ==
LOC: EDUNIT# → ED 17:15
DX: F17.200 Nicotine dependence, unspecified, uncomplicated (principal); F15.10 Other stimulant abuse, uncomplicated; Z53.20 Procedure and treatment not carried out because of patient's decision for unspecified reasons
CPT/HCPCS: 80053; 80307; 80320; 80329; 83690; 84443; 85025; 99284

== ENCOUNTER 2020-04-13 12:48 | Outpatient (CLI) | payer MEDICAID | END 2020-04-13 12:49 | disposition critical access hospital (66) | LOC: EMS 12:48 | PROVIDERS: ATTEND Surgery | DX: S50.312A Abrasion of left elbow, initial encounter (principal); W51.XXXA Accidental striking against or bumped into by another person, initial encounter; Y93.02 Activity, running | CPT/HCPCS: A0425; A0429; A0999 ==

== ENCOUNTER 2020-04-13 13:12 | Emergency (ER) | payer OTHER, MEDICAID ==
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
[2020-04-13] MEDS ORDERED: TETANUS/DIPHTHERIA/PERTUSSIS 0.5 ML SYRINGE IM ONE (13:39)
--- NOTE | 2020-04-13 14:08 | XRAY Report ---
PROCEDURE: Elbow INDICATIONS: elbow inj TECHNIQUE: 2 views of the elbow were acquired. COMPARISON: None available FINDINGS: This study is limited by the patient's inability to cooperate with the examination. Bones: No fractures or dislocations. No suspicious bony lesions. Soft tissues: No significant elbow joint effusion. No suspicious soft tissue calcifications. IMPRESSION: No acute abnormality is seen on this limited plain film study. Reviewed by: Kirit Barraza MD on 04/13/2020 1:07 PM [facility] Approved by: Kirit Barraza MD on 04/13/2020 1:07 PM [facility] Station ID: [id number]
[2020-04-13 14:32] VITALS: BP 111/83
== END 2020-04-13 14:20 | disposition home or self-care (01) ==
LOC: EDUNIT# → ED 13:12
DX: S50.02XA Contusion of left elbow, initial encounter (principal); S50.312A Abrasion of left elbow, initial encounter; Y35.813A Legal intervention involving manhandling, suspect injured, initial encounter; Z23 Encounter for immunization; F17.200 Nicotine dependence, unspecified, uncomplicated
CPT/HCPCS: 90471; 99281; 99283

== ENCOUNTER 2020-05-12 14:49 | Outpatient (CLI) | payer MEDICAID | END 2020-05-12 14:50 | disposition critical access hospital (66) | LOC: EMS 14:49 | PROVIDERS: ATTEND Surgery | DX: Z04.6 Encounter for general psychiatric examination, requested by authority (principal) | CPT/HCPCS: A0425; A0429; A0999 ==

== ENCOUNTER 2020-05-12 15:09 | Emergency (ER) | payer MEDICAID ==
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
[2020-05-12 15:22] LABS: MUDS CUTOFF CONCENTRATIONS CUTOFF CONC BELOW:
[2020-05-12 15:26] LABS: BILIRUBIN,URINE NEGATIVE (NEGATIVE); GLUCOSE, URINE (UA) NEGATIVE (NEGATIVE); KETONES,URINE (UA) NEGATIVE (NEGATIVE); LEUKOCYTE ESTERASE, URINE TRACE (NEGATIVE); NITRITE,URINE NEGATIVE (NEGATIVE); OCCULT BLOOD,URINE NEGATIVE (NEGATIVE); PH,URINE 7.5 PH (5.0-7.5); PROTEIN,URINE NEGATIVE (NEGATIVE); UROBILINOGEN,URINE 0.2 (NORMAL) E.U./dL (NORMAL)
[2020-05-12 15:27] LABS: CLARITY,URINE CLEAR (CLEAR); HCG UR QUAL NEGATIVE
[2020-05-12 15:30] VITALS: BP 135/108
[2020-05-12 15:35] LABS: BACTERIA,URINE Rare /HPF (None Seen); RBC,URINE 0-5 /HPF (0-5); SQUAMOUS EPITHELIAL CELL,UR MOD Squamous (<= Few)
[2020-05-12 15:37] LABS: AMPHETAMINE SCREEN,URINE POSITIVE (NEGATIVE); BENZODIAZEPINES SCREEN, URINE NEGATIVE (NEGATIVE); COCAINE SCREEN URINE NEGATIVE (NEGATIVE); METHADONE SCREEN, URINE NEGATIVE (NEGATIVE); METHAMPHETAMINES SCREEN, URINE POSITIVE (NEGATIVE); OPIATE SCREEN, URINE POSITIVE (NEGATIVE); OXYCODONE SCREEN, URINE NEGATIVE (NEGATIVE); PROPOXYPHENE SCREEN, URINE NEGATIVE (NEGATIVE); TRICYCLIC ANTIDEPRESSANT,URINE NEGATIVE (NEGATIVE)
[2020-05-12 15:47] LABS: BASOPHILS % (AUTO) 0.3 %; EOSINOPHILS % (AUTO) 0.3 %; HGB - HEMOGLOBIN 14.8 g/dL (12.0-16.0); LYMPHOCYTES # (AUTO) 1.4 10^3/uL (1.5-3.5); LYMPHOCYTES % (AUTO) 13.3 %; MEAN CORPUSCULAR HEMOGLOBIN 30.4 pg (27.0-31.0); MEAN CORPUSCULAR HGB CONC 32.1 g/dL (32.0-36.0); MEAN CORPUSCULAR VOLUME 94.7 fL (81.0-99.0); MONOCYTES # (AUTO) 0.5 10^3/uL (0.0-1.0); MONOCYTES % (AUTO) 4.6 %; NEUTROPHILS # (AUTO) 8.3 10^3/uL (1.5-6.6); NEUTROPHILS % (AUTO) 81.2 %; PLT - PLATELET COUNT 272 10^3/uL (130-450); RED BLOOD COUNT 4.87 10^6/uL (4.20-5.40); RED CELL DISTRIBUTION WIDTH 12.4 % (12.0-15.0); WHITE BLOOD COUNT 10.2 x10^3/uL (4.8-10.8)
[2020-05-12 16:03] LABS: ACETAMINOPHEN < 10 ug/mL (10-30); ALBUMIN 4.7 g/dL (3.2-5.5); ALBUMIN/GLOBULIN RATIO 1.4 (1.0-2.2); ALKALINE PHOSPHATASE 74 IU/L (42-121); ALT ALANINE AMINOTRANSFERASE 21 IU/L (10-60); AST ASPARTATE AMINOTRANSFERASE 23 IU/L (10-42); BILIRUBIN,TOTAL 0.9 mg/dL (0.2-1.0); BUN - BLOOD UREA NITROGEN 9 mg/dL (6-20); CALCIUM 9.5 mg/dL (8.5-10.3); CARBON DIOXIDE - CO2 25 mmol/L (21-32); CHLORIDE 100 mmol/L (101-111); CREATININE 0.7 mg/dL (0.4-1.0); GLUCOSE 109 mg/dL (70-100); LIPASE 28 U/L (22-51); SALICYLATE < 6.0 mg/dL; SODIUM 138 mmol/L (135-145); TOTAL PROTEIN 8.1 g/dL (6.7-8.2)
[2020-05-12 17:14] LABS: C. PNEUMONIAE- RESP PCR PANEL NOT DETECTED
== END 2020-05-12 17:43 | disposition left against medical advice (07) ==
LOC: EDUNIT# → ED 15:09
DX: F15.10 Other stimulant abuse, uncomplicated (principal); F17.200 Nicotine dependence, unspecified, uncomplicated; Z20.828 Contact with and (suspected) exposure to other viral communicable diseases; Z53.21 Procedure and treatment not carried out due to patient leaving prior to being seen by health care provider
CPT/HCPCS: 0202U; 80053; 80306; 80307; 80320; 80329; 81001; 81025; 83690; 84443; 85025; 99283; 36415; 81003; 87086

== ENCOUNTER 2020-06-02 15:15 | Outpatient (CLI) | payer MEDICAID ==
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
== END 2020-06-02 15:16 | disposition critical access hospital (66) ==
LOC: EMS 15:15
PROVIDERS: ATTEND Surgery
DX: Z04.6 Encounter for general psychiatric examination, requested by authority (principal); Z78.1 Physical restraint status
CPT/HCPCS: A0425; A0429; A0999

== ENCOUNTER 2020-06-02 15:49 | Emergency (ER) | payer MEDICAID ==
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
[2020-06-02 16:28] LABS: BASOPHILS % (AUTO) 0.3 %; EOSINOPHILS # (AUTO) 0.2 10^3/uL (0.0-0.7); EOSINOPHILS % (AUTO) 1.3 %; HGB - HEMOGLOBIN 13.5 g/dL (12.0-16.0); LYMPHOCYTES # (AUTO) 1.1 10^3/uL (1.5-3.5); LYMPHOCYTES % (AUTO) 8.8 %; MEAN CORPUSCULAR HEMOGLOBIN 30.7 pg (27.0-31.0); MEAN CORPUSCULAR HGB CONC 32.8 g/dL (32.0-36.0); MEAN CORPUSCULAR VOLUME 93.6 fL (81.0-99.0); MEAN PLATELET VOLUME 9.5 fL (7.9-10.8); MONOCYTES # (AUTO) 0.7 10^3/uL (0.0-1.0); MONOCYTES % (AUTO) 5.6 %; NEUTROPHILS # (AUTO) 10.6 10^3/uL (1.5-6.6); NEUTROPHILS % (AUTO) 83.5 %; PLT - PLATELET COUNT 283 10^3/uL (130-450); RED CELL DISTRIBUTION WIDTH 12.7 % (12.0-15.0); WHITE BLOOD COUNT 12.7 x10^3/uL (4.8-10.8)
[2020-06-02 16:52] LABS: ACETAMINOPHEN < 10 ug/mL (10-30); ALBUMIN 4.2 g/dL (3.2-5.5); ALBUMIN/GLOBULIN RATIO 1.3 (1.0-2.2); ALKALINE PHOSPHATASE 72 IU/L (42-121); ALT ALANINE AMINOTRANSFERASE 23 IU/L (10-60); AST ASPARTATE AMINOTRANSFERASE 32 IU/L (10-42); BILIRUBIN,TOTAL 0.5 mg/dL (0.2-1.0); BUN - BLOOD UREA NITROGEN 15 mg/dL (6-20); CALCIUM 9.1 mg/dL (8.5-10.3); CARBON DIOXIDE - CO2 26 mmol/L (21-32); CHLORIDE 98 mmol/L (101-111); CREATININE 0.8 mg/dL (0.4-1.0); GLUCOSE 112 mg/dL (70-100); LIPASE 17 U/L (22-51); SALICYLATE < 6.0 mg/dL; TOTAL PROTEIN 7.4 g/dL (6.7-8.2)
[2020-06-02 19:19] LABS: MUDS CUTOFF CONCENTRATIONS CUTOFF CONC BELOW:
[2020-06-02 19:21] LABS: BILIRUBIN,URINE NEGATIVE (NEGATIVE); GLUCOSE, URINE (UA) NEGATIVE (NEGATIVE); KETONES,URINE (UA) NEGATIVE (NEGATIVE); LEUKOCYTE ESTERASE, URINE SMALL (NEGATIVE); NITRITE,URINE NEGATIVE (NEGATIVE); OCCULT BLOOD,URINE MODERATE (NEGATIVE); PROTEIN,URINE NEGATIVE (NEGATIVE); UROBILINOGEN,URINE 0.2 (NORMAL) E.U./dL (NORMAL)
[2020-06-02 19:42] LABS: CLARITY,URINE HAZY (CLEAR); HCG UR QUAL NEGATIVE
[2020-06-02 19:48] LABS: C. PNEUMONIAE- RESP PCR PANEL NOT DETECTED
[2020-06-02 19:49] LABS: AMPHETAMINE SCREEN,URINE POSITIVE (NEGATIVE); BENZODIAZEPINES SCREEN, URINE NEGATIVE (NEGATIVE); COCAINE SCREEN URINE NEGATIVE (NEGATIVE); METHADONE SCREEN, URINE NEGATIVE (NEGATIVE); METHAMPHETAMINES SCREEN, URINE POSITIVE (NEGATIVE); OPIATE SCREEN, URINE POSITIVE (NEGATIVE); OXYCODONE SCREEN, URINE NEGATIVE (NEGATIVE); PROPOXYPHENE SCREEN, URINE NEGATIVE (NEGATIVE); TRICYCLIC ANTIDEPRESSANT,URINE NEGATIVE (NEGATIVE)
[2020-06-02 19:59] LABS: BACTERIA,URINE Many /HPF (None Seen); SQUAMOUS EPITHELIAL CELL,UR RARE Squamous (<= Few); WBC CLUMPS,URINE PRESENT
[2020-06-02 20:39] VITALS: BP 145/90
[2020-06-02] MEDS ORDERED: NITROFURANTOIN MACRO 100 MG CAPSULE PO STA (22:04)
[2020-06-02] MEDS ORDERED: ACETAMINOPHEN 325 MG TABLET PO STA ×2 (22:25→22:36)
[2020-06-02] MEDS ORDERED: PHENAZOPYRIDINE 100 MG TABLET PO STA (22:25)
--- NOTE | 2020-06-02 23:40 | ED Physician Documentation ---
ED Addendum - Addendum Addendum: 06/02/20 23:39 Discussed with DCR Antonieta appearing significantly more coherent than before. States that she was on the highway because she was trying to get [facility] to get antibiotics for her UTI. DCR in process of reviewing detox resources for her. 06/02/20 23:40 06/03/20 00:19 DCR was able to find an involuntary detox bed for her but the patient stated she is not ready for inpatient detox at this time. She denied SI/HI/AVH and had linear thought process on my evaluation. I discussed with her that we would try to make her comfortable in the ED until she could be taken to detox, offered her medication to relax/sleep. she then requested xanaax as a sleep aide. While I was interviewing another patient she spoke with nursing and said she changed her mind, refusing meds and walked out the ambulance bay.
[2020-06-03] MEDS ORDERED: ALPRAZolam 0.25 MG TABLET PO STA (00:11)
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
== END 2020-06-03 03:45 | disposition left against medical advice (07) ==
LOC: EDUNIT# → ED 15:49
DX: F15.10 Other stimulant abuse, uncomplicated (principal); F11.10 Opioid abuse, uncomplicated; F91.8 Other conduct disorders; Z78.1 Physical restraint status; N30.00 Acute cystitis without hematuria; F17.210 Nicotine dependence, cigarettes, uncomplicated; Z20.822 Contact with and (suspected) exposure to COVID-19
CPT/HCPCS: 0202U; 80053; 80306; 80307; 80320; 80329; 81001; 81025; 83690; 84443; 85025; 87086; 87181; 99283; 99285; A9270; 81003